=== PATIENT | male | born 1960 | race Caucasian/White ===

== ENCOUNTER 2024-12-15 05:31 | Day surgery (SDC) | payer BC, OTHER ==
[2024-12-15] MEDS ORDERED: Propofol 200 MG/20 ML SDV IV ONE (05:32)
[2024-12-15] MEDS ORDERED: Lactated Ringers 500 ML IV ONE (05:32)
[2024-12-15] MEDS ORDERED: Lidocaine 2% 20 ML MDV NERVRT ONE (05:32)
[2024-12-15] MEDS: Lactated Ringers 1,000 ML IV SCH (05:55)
[2024-12-15 08:03] VITALS: BP 133/69; PULSE 70
== END 2024-12-15 08:17 | disposition home or self-care (01) ==
LOC: DL.ENDO 05:31
PROVIDERS: ATTEND Internal Medicine Gastroenterology
DX: Z12.11 Encounter for screening for malignant neoplasm of colon (principal); K51.40 Inflammatory polyps of colon without complications; K57.30 Diverticulosis of large intestine without perforation or abscess without bleeding; I10 Essential (primary) hypertension; E78.5 Hyperlipidemia, unspecified; Z79.899 Other long term (current) drug therapy
CPT/HCPCS: 00811; 45385; J2003; J2704; J7120